=== PATIENT | male | born 1965 | race Caucasian/White ===

== ENCOUNTER 2024-03-31 19:02 | Emergency (ER) | payer OTHER, SELFPAY ==
--- NOTE | ~2024-03-31 | CT_ITS ---
EXAMINATION: CT HEAD WITHOUT CONTRAST CT CERVICAL SPINE WITHOUT CONTRAST CLINICAL INFORMATION: Head injury. Pain. COMPARISON: CT head and cervical spine from 05/21/2018. TECHNIQUE: Contiguous axial imaging was performed from the skull base to vertex without intravenous administration of contrast. Contiguous axial imaging was performed from the upper chest through the skull base without intravenous administration of contrast. Coronal and sagittal reformats were obtained at the acquisition workstation. This CT examination was performed using dose optimization techniques as appropriate, variously including the following: *Automated exposure control. *Adjustment of mA and/or kV according to patient size (this includes techniques or standardized protocols for targeted exams where dose is matched to indication/reason for exam; i.e. extremities or head). *Use of iterative reconstruction technique. DLP: 966 mGy-cm FINDINGS: Head: There is no evidence of acute intracranial hemorrhage or edematous territorial infarction. Carcamo-white matter differentiation is preserved. Scattered and partially confluent hypoattenuation in the periventricular and deep white matter are consistent with moderate microangiopathy. Proportional prominence of the ventricles and sulcal spaces without evidence of obstructive hydrocephalus. No abnormal mass effect or midline shift. No extra-axial fluid collections. Moderate subgaleal hematoma along the right vertex, measuring up to 0.9 cm in depth. No associated acute osseous abnormalities. The mastoid air cells and visualized paranasal sinuses are clear. Cervical Spine: The atlantooccipital and atlantoaxial articulations remain well aligned. Straightening of the normal cervical lordosis. Otherwise, there is anatomic alignment of the vertebral bodies and posterior elements. Congenital nonfusion of the posterior arch of C1. No evidence of acute fracture or subluxation. The vertebral body heights are maintained. Moderate degenerative disc disease from C4-C6. Mild degenerative disc disease at all additional levels. There is no prevertebral soft tissue swelling. The thyroid gland and remaining cervical soft tissues are within normal limits. The lung apices demonstrate no abnormalities. CT/CT cervical spine wo IV con IMPRESSION: 1. No evidence of acute intracranial hemorrhage or edematous territorial infarction. Moderate underlying microangiopathy and generalized cerebral volume loss. 2. No evidence of acute fracture or traumatic subluxation of the cervical spine. Mild to moderate multilevel degenerative spondyloarthropathy of the cervical spine. Electronically signed by: Al Montejo DO 03/31/2024 07:56 PM EDT
--- NOTE | 2024-03-31 19:08 | ED.GENADULT ---
HPI - General Adult General Chief complaint: Fall Stated complaint: ETOH, fall-head inj Time Seen by Provider: 03/31/24 20:45 Source: patient and family Limitations: no limitations History of Present Illness ED Provider: Lauren Morales PA-C HPI narrative: 58-year-old male presents after fall at home. Patient admits to drinking alcohol overnight, was walking to go to bed, he subsequently tripped and fall hitting a piece of furniture. Patient sustained a laceration over the right side of the head. Tetanus up-to-date. Patient does not use blood thinners. There was no loss of consciousness. Patient does not have any additional pain related complaints. Related Data Allergies Allergy/AdvReac Type Severity Reaction Status Date / Time No Known Allergies Allergy Verified 03/31/24 19:13 [No Known Allergies*] Review of Systems Review of Systems: Yes all other systems are reviewed and are negative Constitutional: Constitutional: Denies fever(s) and Denies headache(s) ENT: Denies headache(s) and Denies neck pain Cardiovascular: Cardiovascular: Denies chest pain and Denies dyspnea Respiratory: Respiratory: Denies dyspnea Gastrointestinal: Gastrointestinal: Denies nausea and Denies vomiting Musculoskeletal: Musculoskeletal: Denies arthralgias, Denies joint swelling and Denies neck pain Neurologic: Denies headache(s) [facility] Past Medical History Attestation statement: The following information was validated with the patient. Social History Social History Advance Directives: No Advance Directives Information Provided: No Do you have a plan to hurt others: No Plan Physical Exam ED Vital Signs: Vital Signs - 24 hr 03/31/24 19:09 03/31/24 19:58 03/31/24 22:43 Temperature 97.7 F 98.5 F 98.5 F Pulse Rate 84 70 70 Respiratory Rate 16 19 19 Blood Pressure 120/79 126/82 126/82 Pulse Oximetry 99 98 98 Oxygen Delivery Method Room Air Room Air Room Air BMI result Body Mass Index 20.4 Const Other: Alert, well in appearance, 6 cm linear laceration over right parietal region, minimally bleeding, deep to SC tissue Orientation/consciousness: patient oriented x3 Neck Other: Soft, supple, full range of motion no midline tenderness Resp Effort & Inspection: normal respiratory effort Cardio Other: Normal peripheral perfusion Skin Other: Warm dry no rash Neuro General: patient oriented x3, no focal motor deficits and CN's II-XI intact bilaterally Psych Other: Calm cooperative Course Course Course Narrative: RME performed by Darcy Pedro PA-C. Patient is a 58 year old assigned male at presenting to the emergency department with a large head laceration. Patient states that he got drunk, went to go to bed, and fell hitting his head. Detailed physical exam and review of systems are deferred to the training generalist. Imaging ordered. Patient placed back in the waiting room pending room availability and results. Medications Administered Discontinued Medications Generic Name Dose Route Start Last Admin Trade Name Erich PRN Reason Stop Dose Admin Lidocaine/Epinephrine 30 ml 03/31/24 21:08 03/31/24 21:52 Lidocaine Hcl 1%/Epi 1:100,000 10 Ml Vial INFILTRATI 03/31/24 21:09 30 ml ONCE ONE Administration Procedures Laceration Laceration 1: Site: scalp Side (If applicable): right Size (cm): 6 Description: linear Depth: simple, single layer Local Anesthetic: lidocaine 2% and with epi Amount of anesthesia used (mL): 20 Pre-repair: irrigated extensively Skin layer closed with: other ([place]) Number of sutures: 16 Medical Decision Making Medical Decision Making [facility] Narrative: 58-year-old male presents after fall at home. Patient admits to drinking alcohol overnight, was walking to go to bed, he subsequently tripped and fall hitting a piece of furniture. Patient sustained a laceration over the right side of the head. Tetanus up-to-date. Patient does not use blood thinners. There was no loss of consciousness. Patient does not have any additional pain related complaints. Problem: Intoxication History: Per patient and his I have considered the following differential diagnoses: Intracranial hemorrhage, cervical spine injury, contusion, laceration Plan: Patient was assessed from triage, in RME, CT scans were ordered. Laceration require simple repair, we will use taj. I have independently reviewed the following tests: CT HEAD WITHOUT CONTRAST CT CERVICAL SPINE WITHOUT CONTRAST CLINICAL INFORMATION: Head injury. Pain. COMPARISON: CT head and cervical spine from 05/21/2018. TECHNIQUE: Contiguous axial imaging was performed from the skull base to vertex without intravenous administration of contrast. Contiguous axial imaging was performed from the upper chest through the skull base without intravenous administration of contrast. Coronal and sagittal reformats were obtained at the acquisition workstation. This CT examination was performed using dose optimization techniques as appropriate, variously including the following: *Automated exposure control. *Adjustment of mA and/or kV according to patient size (this includes techniques or standardized protocols for targeted exams where dose is matched to indication/reason for exam; i.e. extremities or head). *Use of iterative reconstruction technique. DLP: 966 mGy-cm FINDINGS: Head: There is no evidence of acute intracranial hemorrhage or edematous territorial infarction. Carcamo-white matter differentiation is preserved. Scattered and partially confluent hypoattenuation in the periventricular and deep white matter are consistent with moderate microangiopathy. Proportional prominence of the ventricles and sulcal spaces without evidence of obstructive hydrocephalus. No abnormal mass effect or midline shift. No extra-axial fluid collections. Moderate subgaleal hematoma along the right vertex, measuring up to 0.9 cm in depth. No associated acute osseous abnormalities. The mastoid air cells and visualized paranasal sinuses are clear. Cervical Spine: The atlantooccipital and atlantoaxial articulations remain well aligned. Straightening of the normal cervical lordosis. Otherwise, there is anatomic alignment of the vertebral bodies and posterior elements. Congenital nonfusion of the posterior arch of C1. No evidence of acute fracture or subluxation. The vertebral body heights are maintained. Moderate degenerative disc disease from C4-C6. Mild degenerative disc disease at all additional levels. There is no prevertebral soft tissue swelling. The thyroid gland and remaining cervical soft tissues are within normal limits. The lung apices demonstrate no abnormalities. CT/CT cervical spine wo IV con IMPRESSION: 1. No evidence of acute intracranial hemorrhage or edematous territorial infarction. Moderate underlying microangiopathy and generalized cerebral volume loss. 2. No evidence of acute fracture or traumatic subluxation of the cervical spine. Mild to moderate multilevel degenerative spondyloarthropathy of the cervical spine. Electronically signed by: Al Montejo DO 03/31/2024 07:56 PM EDT Dictated By: Lebron Montejo DO Signed By: <Electronically signed by Lebron Montejo DO in OV> Discharge Plan Discharge Clinical Impression: Laceration of scalp Patient Disposition: Home, Self-Care Instructions: Laceration (ED) Additional Instructions: 16 taj were used to repair the laceration. They can be removed in 7-10 days. You can follow up with your primary care provider to do so. Watch for signs of infection which would include redness, swelling, pus from the stable site, or fever. The CT scans of your brain and cervical spine were normal, you did not sustain an additional injury other than the laceration. Interventions: ED Discharge Assessment Last Done: 03/31/24 22:43 Discharge Date/Time: 03/31/24 22:46 Print Language: Kiswahili
[2024-03-31 19:09] VITALS: BP 120/79; PULSE 84; RESP 16; TEMP 36.5; O2SAT 99; BMI 20.4
[2024-03-31 19:58] VITALS: BP 126/82; PULSE 70; RESP 19; TEMP 36.9; O2SAT 98
--- NOTE | 2024-03-31 19:59 | MHC.EDTECH ---
This tech took over care of patient at this time,rounds and vitals completed,patient has a bandage to head,bleeding is controlled,family at bedside call rodrigues in reach
[2024-03-31] MEDS: Lidocaine HCl 1%/Epi 1:100,000 10 ML VIAL 30 ML INFILTRATI (21:52)
[2024-03-31 22:43] VITALS: BP 126/82; PULSE 70; RESP 19; TEMP 36.9; O2SAT 98
== END 2024-03-31 22:46 | disposition home or self-care (01) ==
PROVIDERS: Emergency Provider Emergency Medicine; PCP Physician Assistant
DX: S01.01XA Laceration without foreign body of scalp, initial encounter (principal); W01.190A Fall on same level from slipping, tripping and stumbling with subsequent striking against furniture, initial encounter; Y93.89 Activity, other specified; Y92.019 Unspecified place in single-family (private) house as the place of occurrence of the external cause; Y99.9 Unspecified external cause status
CPT/HCPCS: 12002; 70450; 72125; 99283; 99284; J2004